=== PATIENT | female | born 1970 | race Caucasian/White ===

== ENCOUNTER → 2022-12-04 | Outpatient (REF) | payer OTHER ==
[2022-12-04 17:46] LABS: BASO # 0.1 10^3/uL (0.0-0.2); EOS # 1.2 10^3/uL (0.0-0.5); HEMOGLOBIN 15.3 g/dl (12.0-15.5); LYMPH # 2.8 10^3/uL (1.5-5.0); LYMPH % 31.4 % (24.0-44.0); MEAN CORPUSCULAR HEMOGLOBIN 30.6 pg (27.0-33.0); MEAN CORPUSCULAR HGB CONC 32.6 g/dl (32.0-36.5); MONO # 0.5 10^3/uL (0.0-0.8); MONO % 5.8 % (2.0-8.0); NEUTROPHILS # 4.3 10^3/uL (1.5-8.5); NEUTROPHILS % 48.6 % (36.0-66.0); PLATELET COUNT, AUTOMATED 206 10^3/uL (150-450); WHITE BLOOD COUNT 8.8 10^3/uL (4.0-10.0)
[2022-12-04 18:12] LABS: HEMOGLOBIN A1c 9.2 % (4.0-6.0)
[2022-12-04 18:15] LABS: ALBUMIN 3.6 G/DL (3.2-5.2); BILIRUBIN,TOTAL 0.3 MG/DL (0.3-1.2); CALCIUM LEVEL 9.2 MG/DL (8.5-10.1); CHOLESTEROL RISK RATIO 3.35 (<5); CREATININE FOR GFR 1.04 MG/DL (0.55-1.30); GLOMERULAR FILTRATION RATE 59.2 (>51); LDL CHOLESTEROL 41.2 MG/DL (<100); POTASSIUM SERUM 4.9 MMOL/L (3.5-5.1); TOTAL PROTEIN 7.1 G/DL (5.7-8.2)
[2022-12-04 18:17] LABS: THYROID STIMULATING HORMONE 5.342 uIU/ML (0.55-4.78)
== END ==
LOC: M LAB REF 16:58
PROVIDERS: ATTEND Nurse Practitioner Family
DX: E55.9 Vitamin D deficiency, unspecified (principal); R53.83 Other fatigue; Z68.26 Body mass index [BMI] 26.0-26.9, adult

== ENCOUNTER → 2023-01-06 | Outpatient (REF) | payer OTHER ==
[2023-01-06 10:59] LABS: ALBUMIN 3.6 G/DL (3.2-5.2); BILIRUBIN,DIRECT 0.1 MG/DL (<0.4); BILIRUBIN,TOTAL 0.3 MG/DL (0.3-1.2); TOTAL PROTEIN 6.3 G/DL (5.7-8.2)
[2023-01-06 11:02] LABS: TOTAL 25(OH) VITAMIN D 40.2 NG/ML (20.0-100.0)
== END ==
LOC: M LAB REF 09:51
PROVIDERS: ATTEND Nurse Practitioner Family
DX: E55.9 Vitamin D deficiency, unspecified (principal); R74.8 Abnormal levels of other serum enzymes

== ENCOUNTER → 2023-08-13 | Outpatient (REF) | payer OTHER, MEDICAID ==
[~2023-08-13] MED LIST: AMIT100TA PO; AMOX875T2 PO; ASPI-161 PO; ATOR80TA59 PO; BASA100I SC; CLON0.5T2 PO; D200CAP PO; HUMA100I5 SC; LATU80TA2 PO; LOSA100T46 PO; LYRI300C PO; SYNT112T2 PO
[2023-08-13 13:30] LABS: BASO % 0.6 % (0.0-1.0); EOS # 0.2 10^3/uL (0.0-0.5); EOS % 2.8 % (0.0-3.0); HEMATOCRIT 40.3 % (36.0-47.0); HEMOGLOBIN 13.4 g/dl (12.0-15.5); LYMPH # 3.4 10^3/uL (1.5-5.0); LYMPH % 50.7 % (24.0-44.0); MEAN CORPUSCULAR HEMOGLOBIN 31.2 pg (27.0-33.0); MEAN CORPUSCULAR HGB CONC 33.3 g/dl (32.0-36.5); MEAN CORPUSCULAR VOLUME 93.9 fl (80.0-96.0); MONO # 0.4 10^3/uL (0.0-0.8); MONO % 5.8 % (2.0-8.0); NEUTROPHILS # 2.7 10^3/uL (1.5-8.5); PLATELET COUNT, AUTOMATED 182 10^3/uL (150-450); RED BLOOD COUNT 4.29 10^6/uL (4.00-5.40); WHITE BLOOD COUNT 6.8 10^3/uL (4.0-10.0)
== END ==
LOC: M LAB REF 12:11
PROVIDERS: ATTEND Nurse Practitioner Family
DX: E03.9 Hypothyroidism, unspecified (principal); D72.829 Elevated white blood cell count, unspecified

== ENCOUNTER → 2024-03-07 | Outpatient (REF) | payer OTHER ==
[~2024-03-07] MED LIST changes: -ASPI-161 PO; +ASPI-615 PO
[2024-03-07 18:22] LABS: HEMOGLOBIN A1c 8.5 % (4.0-6.0)
[2024-03-07 18:44] LABS: ALBUMIN 4.3 G/DL (3.2-5.2); BILIRUBIN,TOTAL 0.6 MG/DL (0.3-1.2); CALCIUM LEVEL 9.7 MG/DL (8.5-10.1); CREATININE FOR GFR 1.42 MG/DL (0.55-1.30); POTASSIUM SERUM 5.7 MMOL/L (3.5-5.1); THYROID STIMULATING HORMONE 3.527 uIU/ML (0.55-4.78); TOTAL PROTEIN 7.7 G/DL (5.7-8.2)
== END ==
LOC: M LAB REF 16:30
PROVIDERS: ATTEND Nurse Practitioner Family
DX: E10.9 Type 1 diabetes mellitus without complications (principal); E78.00 Pure hypercholesterolemia, unspecified; E03.9 Hypothyroidism, unspecified

== ENCOUNTER → 2024-07-11 | Outpatient (REF) | payer OTHER ==
[2024-07-11 12:59] LABS: BLOOD UREA NITROGEN 9 MG/DL (9-23); CALCIUM LEVEL 9.9 MG/DL (8.5-10.1); CARBON DIOXIDE LEVEL 30 MMOL/L (20-31); CHLORIDE LEVEL 100 MMOL/L (98-107); CHOLESTEROL LEVEL 241 MG/DL (<200); CHOLESTEROL RISK RATIO 4.36 (<5); CREATININE FOR GFR 1.02 MG/DL (0.55-1.30); GLOMERULAR FILTRATION RATE > 60.0 (>51); GLUCOSE, FASTING 61 MG/DL (60-100); HDL CHOLESTEROL 55.2 MG/DL (>40); LDL CHOLESTEROL 135.4 MG/DL (<100); NON-HDL-C 185.8 MG/DL; POTASSIUM SERUM 3.5 MMOL/L (3.5-5.1); SODIUM LEVEL 141 MMOL/L (136-145); TRIGLYCERIDES LEVEL 252 MG/DL (<150)
[2024-07-11 13:01] LABS: THYROID STIMULATING HORMONE 57.541 uIU/ML (0.55-4.78)
[2024-07-11 14:03] LABS: CREATININE, URINE 100.3 MG/DL
[2024-07-11 14:05] LABS: MAU/CREAT RATIO 4.9 MCG/MG (0.0-30.0)
== END ==
LOC: M LAB REF 12:26
PROVIDERS: ATTEND Nurse Practitioner Family
DX: R94.4 Abnormal results of kidney function studies (principal); E10.9 Type 1 diabetes mellitus without complications; E03.9 Hypothyroidism, unspecified; Z11.9 Encounter for screening for infectious and parasitic diseases, unspecified

== ENCOUNTER 2025-04-24 17:21 | Inpatient (IN) | payer OTHER ==
[~2025-04-24] VITALS: Ht 167.6 cm; Wt 51.0 kg
[2025-04-24 17:53] LABS: VENOUS BASE EXCESS -18.5 (-2.0-2.0); VENOUS HCO3 10.0 MMOL/L (23.0-27.0); VENOUS O2 SATURATION 62.7 % (60.0-80.0); VENOUS PARTIAL PRESSURE CO2 32.8 mmHg (38.0-50.0); VENOUS PARTIAL PRESSURE O2 46.4 mmHg (30.0-50.0); VENOUS PH 7.100 UNITS (7.330-7.430); VENOUS STANDARD HCO3 10.1 MMOL/L; VENOUS TOTAL CO2 11.0 MMOL/L (24.0-28.0)
[2025-04-24] MEDS: NS (Normal Saline) 0.9% 1,000 ML IV ONE ×2 (17:59→19:07)
[2025-04-24 18:04] LABS: BASO # 0.1 10^3/uL (0.0-0.2); BASO % 0.2 % (0.0-1.0); EOS # 0.0 10^3/uL (0.0-0.5); EOS % 0.0 % (0.0-3.0); LYMPH # 2.4 10^3/uL (1.5-5.0); LYMPH % 8.1 % (24.0-44.0); MONO # 1.3 10^3/uL (0.0-0.8); MONO % 4.4 % (2.0-8.0); NEUTROPHILS # 25.9 10^3/uL (1.5-8.5); NEUTROPHILS % 86.4 % (36.0-66.0); PLATELET COUNT, AUTOMATED 213 10^3/uL (150-450)
[2025-04-24 18:10] LABS: ABG BASE EXCESS -16.6 (-2.0-2.0); ABG HCO3 8.6 MMOL/L (22.0-26.0); ABG O2 SATURATION 99.3 % (95.0-99.0); ABG PARTIAL PRESSURE CO2 20.1 mmHg (35.0-45.0); ABG PARTIAL PRESSURE O2 218.9 mmHg (75.0-100.0); ABG STANDARD HCO3 11.9 MMOL/L. (22.0-26.0); ABG TOTAL CO2 9.3 MMOL/L (22.0-29.0); ABG pH (ARTERIAL) 7.251 UNITS (7.350-7.450)
[2025-04-24 18:26] LABS: ETHYL ALCOHOL (ETHANOL) 0.005 % (0.000-0.010)
[2025-04-24 18:28] LABS: OSMOLALITY SERUM 356 MOSM/KG (275-295)
[2025-04-24] MEDS: HumuLIN R (REGULAR) INSULIN (NovoLIN R) **100 U/ML** PER UNIT IV ONE (18:28)
[2025-04-24 18:29] LABS: FREE T4 1.30 NG/DL (0.89-1.76)
[2025-04-24] MEDS: CEFEPIME HCL 2 GM in DEXTROSE 5% (D5W) ADV/MINI-BAG 50 ML IV ONE (18:29)
[2025-04-24 18:31] LABS: SP GRAVITY,URINE MANUAL REFLEX 1.020 (1.002-1.035)
[2025-04-24 18:32] LABS: KETONE, URINE MANUAL REFLEX 3+ mg/dL (NEGATIVE); NITRITE, URINE MANUAL RFX NEGATIVE (NEGATIVE); PROTEIN, URINE MANUAL REFLEX TRACE mg/dL (NEGATIVE); UROBILINOGEN, UA MANUAL REFLEX NORMAL (NORMAL)
[2025-04-24] MEDS: ONDANSETRON 4MG 2ML VIAL IV ONE (18:32)
[2025-04-24 18:34] LABS: ACETONE/KETONE > 4.50 MMOL/L (0.02-0.27); ALT/SGPT 15 U/L (7.0-40); AST/SGOT 23 U/L (<34); CALCIUM LEVEL 8.0 MG/DL (8.5-10.1); CARBON DIOXIDE LEVEL < 10.0 MMOL/L (20-31); CHLORIDE LEVEL 101 MMOL/L (98-107); CREATININE FOR GFR 1.84 MG/DL (0.55-1.30); GLOMERULAR FILTRATION RATE 32.0 (>51); POTASSIUM SERUM 5.1 MMOL/L (3.5-5.1); SODIUM LEVEL 144 MMOL/L (136-145)
[2025-04-24 18:35] LABS: HYALINE CAST, URINE RFX NONE SEEN /lpf (0-1); MICROSCOPIC EXAM RFX PERFORMED; SQUAMOUS EPITHELIAL URINE RFX SMALL AMOUNT /hpf (SMALL AMT)
[2025-04-24 18:45] LABS: ESTIMATED AVERAGE GLUCOSE 217.0 MG/DL (60-110)
[2025-04-24 19:13] LABS: AMPHETAMINES LEVEL URINE NEGATIVE (NEGATIVE); BARBITURATES URINE NEGATIVE (NEGATIVE); BENZODIAZEPINES URINE NEGATIVE (NEGATIVE); COCAINE METABOLITE URINE NEGATIVE (NEGATIVE); METHADONE URINE NEGATIVE (NEGATIVE); OPIATES URINE NEGATIVE (NEGATIVE)
[2025-04-24 19:14] LABS: PHENCYCLIDINE URINE NEGATIVE (NEGATIVE)
[2025-04-24] MEDS ORDERED: INSULIN IV RATE CHANGE DOCUMENTATION ML/HR XX SCH (19:15)
[2025-04-24 19:16] LABS: CANNABINOIDS URINE POSITIVE (NEGATIVE)
[2025-04-24] MEDS: INSULIN REGULAR IN 0.9 % NACL 100 UNIT in IV 1 EA IV SCH ×2 (19:20→21:49)
[2025-04-24] MEDS ORDERED: VENTAER INH (20:13)
[2025-04-24] MEDS ORDERED: PREG75CA3 PO (20:13)
[2025-04-24] MEDS ORDERED: MIRT1TAB PO (20:17)
[2025-04-24] MEDS ORDERED: METH20TA29 PO (20:17)
[2025-04-24] MEDS ORDERED: CYPR4TAB36 PO (20:17)
[2025-04-24] MEDS ORDERED: LEVO100T5 PO (20:17)
[2025-04-24] MEDS ORDERED: XALA0.007 OU (20:17)
[2025-04-24] MEDS ORDERED: OLOP2.5D7 OU (20:17)
[2025-04-24] MEDS ORDERED: LANTINJ4 SQ (20:17)
[2025-04-24] MEDS ORDERED: LOSA100T46 PO (20:17)
[2025-04-24] MEDS ORDERED: HOME MED LIST COMPLETE! XX SCH (20:20)
[2025-04-24] MEDS ORDERED: ISOVUE-370 76% 100 ML VIAL As Ordered ONE (20:53)
[2025-04-24] MEDS: SODIUM BICARBONATE 8.4% INJ 50ML SYRINGE IV STA (21:27)
[2025-04-24] MEDS: NS (Normal Saline) 0.9% 1,000 ML IV SCH ×2 (21:27→22:34)
[2025-04-24] MEDS: VANCOMYCIN HCL 1,000 MG, VIAL MATE ADAPTER 1 EACH in NS 250 ML IV ONE (21:39)
[2025-04-24] MEDS ORDERED: IPRATROPIUM 0.5 MG/ALBUTEROL 2.5 MG INH SOL UD 3 ML NEB PRN (22:00)
[2025-04-24] MEDS: SODIUM BICARBONATE 8.4% INJ 50ML SYRINGE IV SCH (22:34)
[2025-04-24] MEDS: LanTUS (INSULIN GLARGINE INJ) 1 UNITS/0.01 ML SC SCH (22:34)
[2025-04-24] MEDS: HEPARIN SOD 5000 UNITS/ML 1 ML VIAL/SYRINGE SC SCH (22:35)
[2025-04-24] MEDS: ASPIRIN 81 MG ENTERIC TABLET PO SCH (23:00)
[2025-04-24] MEDS: LURASIDONE HCL 40 MG TAB PO SCH (23:00)
[2025-04-24] MEDS: ATORVASTATIN 20 MG TAB PO SCH (23:00)
[2025-04-24 23:11] VITALS: BP 140/95; TEMP 99.7; O2SAT 94
[2025-04-24] MEDS: ONDANSETRON 4MG 2ML VIAL IV PRN (23:30)
[2025-04-24 23:39] VITALS: TEMP 99.2
[2025-04-24] MEDS: INSULIN IV RATE CHANGE DOCUMENTATION ML/HR XX SCH (23:57)
[2025-04-25] VITALS (17 sets, daily range): BP systolic 104–132; BP diastolic 56–80; TEMP 98.6–99.7; O2SAT 93–100
[2025-04-25] MEDS: D5W/LR 1,000 ML IV SCH (00:24)
[2025-04-25 00:33] LABS: BASO # 0.1 10^3/uL (0.0-0.2); BASO % 0.2 % (0.0-1.0); EOS # 0.3 10^3/uL (0.0-0.5); EOS % 0.9 % (0.0-3.0); LYMPH # 3.1 10^3/uL (1.5-5.0); LYMPH % 10.3 % (24.0-44.0); MONO # 1.4 10^3/uL (0.0-0.8); MONO % 4.6 % (2.0-8.0); NEUTROPHILS # 24.9 10^3/uL (1.5-8.5); NEUTROPHILS % 83.0 % (36.0-66.0); PLATELET COUNT, AUTOMATED 176 10^3/uL (150-450)
[2025-04-25 00:34] LABS: ALT/SGPT 28.0 U/L (7.0-40); AST/SGOT 58.0 U/L (<34); CALCIUM LEVEL 7.4 MG/DL (8.5-10.1); CARBON DIOXIDE LEVEL 24.0 MMOL/L (20-31); CHLORIDE LEVEL 110.0 MMOL/L (98-107); CREATININE FOR GFR 1.86 MG/DL (0.55-1.30); GLOMERULAR FILTRATION RATE 31.6 (>51); POTASSIUM SERUM 3.5 MMOL/L (3.5-5.1); SODIUM LEVEL 151.0 MMOL/L (136-145)
[2025-04-25] MEDS: PIPERACILLIN/TAZOBACTAM SOD 4.5 GM in DEXTROSE 5% (D5W) ADV/MINI-BAG 50 ML IV SCH (04:44)
[2025-04-25 05:19] LABS: VENOUS BASE EXCESS -0.8 (-2.0-2.0); VENOUS HCO3 24.2 MMOL/L (23.0-27.0); VENOUS O2 SATURATION 96.0 % (60.0-80.0); VENOUS PARTIAL PRESSURE CO2 41.3 mmHg (38.0-50.0); VENOUS PARTIAL PRESSURE O2 95.6 mmHg (30.0-50.0); VENOUS PH 7.385 UNITS (7.330-7.430); VENOUS STANDARD HCO3 23.8 MMOL/L; VENOUS TOTAL CO2 25.4 MMOL/L (24.0-28.0)
[2025-04-25 05:29] LABS: BASO # 0.1 10^3/uL (0.0-0.2); BASO % 0.2 % (0.0-1.0); EOS # 0.0 10^3/uL (0.0-0.5); EOS % 0.0 % (0.0-3.0); LYMPH # 2.7 10^3/uL (1.5-5.0); LYMPH % 8.9 % (24.0-44.0); MONO # 1.7 10^3/uL (0.0-0.8); MONO % 5.6 % (2.0-8.0); NEUTROPHILS # 25.3 10^3/uL (1.5-8.5); NEUTROPHILS % 84.3 % (36.0-66.0); PLATELET COUNT, AUTOMATED 139 10^3/uL (150-450)
[2025-04-25 05:38] LABS: INR 1.16
[2025-04-25 05:52] LABS: ABG BASE EXCESS 3.3 (-2.0-2.0); ABG HCO3 26.9 MMOL/L (22.0-26.0); ABG O2 SATURATION 97.8 % (95.0-99.0); ABG PARTIAL PRESSURE CO2 37.2 mmHg (35.0-45.0); ABG PARTIAL PRESSURE O2 122.1 mmHg (75.0-100.0); ABG STANDARD HCO3 27.4 MMOL/L. (22.0-26.0); ABG TOTAL CO2 28.0 MMOL/L (22.0-29.0); ABG pH (ARTERIAL) 7.477 UNITS (7.350-7.450)
[2025-04-25 05:57] LABS: CALCIUM LEVEL 6.7 MG/DL (8.5-10.1); CARBON DIOXIDE LEVEL 24.0 MMOL/L (20-31); CHLORIDE LEVEL 112.0 MMOL/L (98-107); CREATININE FOR GFR 1.42 MG/DL (0.55-1.30); GLOMERULAR FILTRATION RATE 43.7 (>51); POTASSIUM SERUM 3.3 MMOL/L (3.5-5.1); SODIUM LEVEL 149.0 MMOL/L (136-145)
[2025-04-25] MEDS: LEVOTHYROXINE 100 MCG TABLET (0.1 MG) PO SCH (06:34)
[2025-04-25] MEDS: INSULIN LISPRO (NovoLOG) PER UNIT SC SCH ×3 (06:34→21:54)
[2025-04-25 07:57] LABS: VANCOMYCIN RANDOM 13.4 UG/ML
[2025-04-25 08:05] LABS: ALT/SGPT 22.0 U/L (7.0-40); AST/SGOT 56.0 U/L (<34); MAGNESIUM LEVEL 1.5 MG/DL (1.8-2.4); PHOSPHORUS LEVEL 1.5 MG/DL (2.5-4.9)
[2025-04-25] MEDS: VANCOMYCIN HCL 750 MG, VIAL MATE ADAPTER 1 EACH in NS 250 ML IV SCH (08:13)
[2025-04-25] MEDS: PANTOPRAZOLE 40MG VIAL IV SCH (08:13)
[2025-04-25] MEDS: ASPIRIN 81 MG ENTERIC TABLET PO SCH (08:14)
[2025-04-25] MEDS: POTASSIUM CHLORIDE 10MEQ SR TABLET PO ONE (08:14)
[2025-04-25] MEDS ORDERED: DEXTROSE 50% 50 ML SYRINGE As Ordered ONE (08:22)
[2025-04-25] MEDS: DEXTROSE 50% 50 ML SYRINGE IV STA (08:23)
[2025-04-25] MEDS ORDERED: GLUCAGON INJ 1 MG VIAL SC PRN (08:25)
[2025-04-25] MEDS ORDERED: GLUCOSE 4 GM CHEW PO PRN (08:25)
[2025-04-25] MEDS: KCL 10MEQ/100ML SWI (KRUN) 10 MEQ in IV 1 EA IV SCH (08:29)
[2025-04-25] MEDS: SYMBICORT 160/4.5MCG INHALER 6GM INH SCH (10:27)
[2025-04-25] MEDS: PREGABALIN 75 MG CAP PO SCH (10:58)
[2025-04-25 11:37] LABS: CALCIUM LEVEL 7.8 MG/DL (8.5-10.1); CARBON DIOXIDE LEVEL 26.5 MMOL/L (20-31); CHLORIDE LEVEL 109.0 MMOL/L (98-107); CREATININE FOR GFR 1.69 MG/DL (0.55-1.30); GLOMERULAR FILTRATION RATE 35.5 (>51); POTASSIUM SERUM 4.0 MMOL/L (3.5-5.1); SODIUM LEVEL 148.0 MMOL/L (136-145)
[2025-04-25] MEDS: METHYLPHENIDATE 5 MG TAB PO ONE (12:27)
[2025-04-25] MEDS: CALCIUM GLUCONATE 1,000 MG in DEXTROSE 5% (D5W) MINI-BAG PLU 100 ML IV ONE (13:29)
[2025-04-25] MEDS: LR 1,000 ML IV SCH (18:11)
[2025-04-25] MEDS: NS 0.45% 1,000 ML IV SCH (18:50)
[2025-04-25] MEDS: MAG SULF 1GM/100ML (MAG RUN) 1 GM in IV 1 EA IV ONE (20:16)
[2025-04-25] MEDS: clonazePAM 0.5 MG TAB PO PRN (20:18)
[2025-04-25] MEDS: DOXYCYCLINE HYCLATE 100 MG TABLET PO SCH (20:18)
[2025-04-25] MEDS: MIRTAZAPINE 7.5 MG PER 1/2 TABLET PO SCH (21:00)
[2025-04-26] VITALS (8 sets, daily range): BP systolic 98–148; BP diastolic 63–90; TEMP 97.2–99.1; O2SAT 93–99
[2025-04-26 05:46] LABS: BASO # 0.0 10^3/uL (0.0-0.2); BASO % 0.1 % (0.0-1.0); EOS # 0.0 10^3/uL (0.0-0.5); EOS % 0.1 % (0.0-3.0); LYMPH # 2.4 10^3/uL (1.5-5.0); LYMPH % 8.7 % (24.0-44.0); MONO # 1.2 10^3/uL (0.0-0.8); MONO % 4.2 % (2.0-8.0); NEUTROPHILS # 23.9 10^3/uL (1.5-8.5); NEUTROPHILS % 85.7 % (36.0-66.0); PLATELET COUNT, AUTOMATED 105 10^3/uL (150-450)
[2025-04-26 06:28] LABS: CALCIUM LEVEL 7.0 MG/DL (8.5-10.1); CARBON DIOXIDE LEVEL 27.0 MMOL/L (20-31); CHLORIDE LEVEL 106.0 MMOL/L (98-107); CREATININE FOR GFR 1.31 MG/DL (0.55-1.30); GLOMERULAR FILTRATION RATE 48.1 (>51); MAGNESIUM LEVEL 1.9 MG/DL (1.8-2.4); PHOSPHORUS LEVEL 2.3 MG/DL (2.5-4.9); POTASSIUM SERUM 3.6 MMOL/L (3.5-5.1); SODIUM LEVEL 142.0 MMOL/L (136-145)
[2025-04-26] MEDS: METHYLPHENIDATE 5 MG TAB PO SCH (08:10)
[2025-04-26] MEDS: INSULIN LISPRO (NovoLOG) PER UNIT SC SCH (08:11)
[2025-04-26] MEDS: PIPERACILLIN/TAZOBACTAM SOD 4.5 GM in DEXTROSE 5% (D5W) ADV/MINI-BAG 50 ML IV SCH (11:14)
[2025-04-26] MEDS: predniSONE 20 MG TAB PO SCH (11:14)
[2025-04-26] MEDS: NICOTINE 14 MG/24 HR TRANSDERMAL TD SCH (11:54)
[2025-04-26] MEDS: IPRATROPIUM 0.5 MG/ALBUTEROL 2.5 MG INH SOL UD 3 ML NEB SCH (15:17)
[2025-04-26] MEDS: K-PHOS NEUTRAL 250 MG TABLET (SOD.PHOSPHATE/POT.PHOSPHATE) PO SCH (16:12)
[2025-04-26] MEDS: LanTUS (INSULIN GLARGINE INJ) 1 UNITS/0.01 ML SC SCH (21:21)
[2025-04-27] VITALS (7 sets, daily range): BP systolic 115–156; BP diastolic 67–81; TEMP 97–98.2; O2SAT 96–100
[2025-04-27 06:49] LABS: BASO # 0.0 10^3/uL (0.0-0.2); BASO % 0.1 % (0.0-1.0); EOS # 0.0 10^3/uL (0.0-0.5); EOS % 0.0 % (0.0-3.0); LYMPH # 1.3 10^3/uL (1.5-5.0); LYMPH % 7.8 % (24.0-44.0); MONO # 0.6 10^3/uL (0.0-0.8); MONO % 3.6 % (2.0-8.0); NEUTROPHILS # 14.6 10^3/uL (1.5-8.5); NEUTROPHILS % 87.8 % (36.0-66.0)
[2025-04-27 06:55] LABS: PLATELET COUNT, AUTOMATED 90 10^3/uL (150-450)
[2025-04-27 07:13] LABS: CALCIUM LEVEL 7.5 MG/DL (8.5-10.1); CARBON DIOXIDE LEVEL 27.0 MMOL/L (20-31); CHLORIDE LEVEL 103.0 MMOL/L (98-107); CREATININE FOR GFR 1.07 MG/DL (0.55-1.30); GLOMERULAR FILTRATION RATE 61.3 (>51); MAGNESIUM LEVEL 1.6 MG/DL (1.8-2.4); PHOSPHORUS LEVEL 2.7 MG/DL (2.5-4.9); POTASSIUM SERUM 3.6 MMOL/L (3.5-5.1); SODIUM LEVEL 140.0 MMOL/L (136-145)
[2025-04-27] MEDS: LanTUS (INSULIN GLARGINE INJ) 1 UNITS/0.01 ML SC SCH (08:43)
[2025-04-27] MEDS: LOSARTAN 50 MG TABLET PO SCH (10:04)
[2025-04-27] MEDS: INSULIN LISPRO (NovoLOG) PER UNIT SC SCH (11:36)
[2025-04-27] MEDS: MAG SULF 1GM/100ML (MAG RUN) 1 GM in IV 1 EA IV SCH (16:34)
[2025-04-28] VITALS (7 sets, daily range): BP systolic 133–181; BP diastolic 73–95; TEMP 96.9–98; O2SAT 95–100
[2025-04-28 06:02] LABS: BASO # 0.0 10^3/uL (0.0-0.2); BASO % 0.1 % (0.0-1.0); EOS # 0.0 10^3/uL (0.0-0.5); EOS % 0.0 % (0.0-3.0); LYMPH # 1.8 10^3/uL (1.5-5.0); LYMPH % 13.9 % (24.0-44.0); MONO # 0.6 10^3/uL (0.0-0.8); MONO % 4.6 % (2.0-8.0); NEUTROPHILS # 10.5 10^3/uL (1.5-8.5); NEUTROPHILS % 80.6 % (36.0-66.0)
[2025-04-28 06:06] LABS: PLATELET COUNT, AUTOMATED 90 10^3/uL (150-450)
[2025-04-28 06:31] LABS: CALCIUM LEVEL 7.9 MG/DL (8.5-10.1); CARBON DIOXIDE LEVEL 28.0 MMOL/L (20-31); CHLORIDE LEVEL 105.0 MMOL/L (98-107); CREATININE FOR GFR 0.89 MG/DL (0.55-1.30); GLOMERULAR FILTRATION RATE 76.5 (>51); MAGNESIUM LEVEL 1.9 MG/DL (1.8-2.4); PHOSPHORUS LEVEL 3.3 MG/DL (2.5-4.9); POTASSIUM SERUM 3.4 MMOL/L (3.5-5.1); SODIUM LEVEL 144.0 MMOL/L (136-145)
[2025-04-28] MEDS: POTASSIUM CHLORIDE 10MEQ SR TABLET PO ONE (08:22)
[2025-04-28] MEDS: LanTUS (INSULIN GLARGINE INJ) 1 UNITS/0.01 ML SC SCH (08:25)
[2025-04-28] MEDS ORDERED: PEN-308 SC (10:02)
[2025-04-28] MEDS ORDERED: LEVO1TAB40 PO (10:02)
[2025-04-28] MEDS ORDERED: ANOR1AER PO (10:02)
[2025-04-28] MEDS ORDERED: LANTINJ4 SQ (10:02)
[2025-04-28] MEDS ORDERED: LANTINJ4 SC (10:02)
[2025-04-28] MEDS ORDERED: PRED10TA2 PO (10:02)
[2025-04-28] MEDS: DEXTROSE 50% 50 ML SYRINGE IV PRN (11:55)
[2025-04-28] MEDS: LOSARTAN 50 MG TABLET PO ONE (12:44)
[2025-04-28] MEDS: INSULIN LISPRO (NovoLOG) PER UNIT SC SCH (18:00)
[2025-04-29] VITALS (7 sets, daily range): BP systolic 105–150; BP diastolic 59–78; TEMP 97–98.7; O2SAT 92–100
[2025-04-29] MEDS: INSULIN LISPRO (NovoLOG) PER UNIT SC ONE (02:40)
[2025-04-29 06:10] LABS: BASO # 0.0 10^3/uL (0.0-0.2); BASO % 0.1 % (0.0-1.0); EOS # 0.0 10^3/uL (0.0-0.5); EOS % 0.0 % (0.0-3.0); LYMPH # 2.0 10^3/uL (1.5-5.0); LYMPH % 18.2 % (24.0-44.0); MONO # 0.9 10^3/uL (0.0-0.8); MONO % 7.8 % (2.0-8.0); NEUTROPHILS # 8.2 10^3/uL (1.5-8.5); NEUTROPHILS % 73.4 % (36.0-66.0); PLATELET COUNT, AUTOMATED 102 10^3/uL (150-450)
[2025-04-29 06:33] LABS: CALCIUM LEVEL 8.4 MG/DL (8.5-10.1); CARBON DIOXIDE LEVEL 30.0 MMOL/L (20-31); CHLORIDE LEVEL 104.0 MMOL/L (98-107); CREATININE FOR GFR 0.92 MG/DL (0.55-1.30); GLOMERULAR FILTRATION RATE 73.5 (>51); POTASSIUM SERUM 3.9 MMOL/L (3.5-5.1); SODIUM LEVEL 142.0 MMOL/L (136-145)
[2025-04-29] MEDS ORDERED: INSULIN LISPRO (NovoLOG) PER UNIT SC SCH (07:30)
[2025-04-29] MEDS: INSULIN LISPRO (NovoLOG) PER UNIT SC SCH ×3 (10:07→20:39)
[2025-04-29] MEDS: LanTUS (INSULIN GLARGINE INJ) 1 UNITS/0.01 ML SC SCH (10:08)
[2025-04-29] MEDS: LOSARTAN 50 MG TABLET PO SCH (10:11)
[2025-04-30 03:14] VITALS: BP 140/64; TEMP 97.9; O2SAT 90
[2025-04-30 07:40] VITALS: BP 147/76; TEMP 97.1; O2SAT 97
[2025-04-30] MEDS: INSULIN LISPRO (NovoLOG) PER UNIT SC SCH (08:19)
[2025-04-30] MEDS: LanTUS (INSULIN GLARGINE INJ) 1 UNITS/0.01 ML SC SCH (08:41)
[2025-04-30 09:20] LABS: CALCIUM LEVEL 8.7 MG/DL (8.5-10.1); CARBON DIOXIDE LEVEL 31.0 MMOL/L (20-31); CHLORIDE LEVEL 94.0 MMOL/L (98-107); CREATININE FOR GFR 1.03 MG/DL (0.55-1.30); GLOMERULAR FILTRATION RATE 64.2 (>51); POTASSIUM SERUM 4.5 MMOL/L (3.5-5.1); SODIUM LEVEL 133.0 MMOL/L (136-145)
[2025-04-30] MEDS: LanTUS (INSULIN GLARGINE INJ) 1 UNITS/0.01 ML SC ONE (09:54)
[2025-04-30 11:53] VITALS: BP 133/74; TEMP 98.3; O2SAT 96
[2025-04-30 19:54] VITALS: BP 130/72; TEMP 97.5; O2SAT 98
[2025-04-30 23:38] VITALS: BP 118/63; TEMP 98.9; O2SAT 93
[2025-05-01 03:47] VITALS: BP 112/65; TEMP 98.8; O2SAT 95
[2025-05-01 07:45] VITALS: BP 142/73; TEMP 97.5; O2SAT 96
[2025-05-01] MEDS: LanTUS (INSULIN GLARGINE INJ) 1 UNITS/0.01 ML SC SCH (08:09)
[2025-05-01 11:53] LABS: ACETONE/KETONE 0.08 MMOL/L (0.02-0.27)
[2025-05-01 11:54] LABS: CALCIUM LEVEL 8.8 MG/DL (8.5-10.1); CARBON DIOXIDE LEVEL 30.0 MMOL/L (20-31); CHLORIDE LEVEL 99.0 MMOL/L (98-107); CREATININE FOR GFR 1.03 MG/DL (0.55-1.30); GLOMERULAR FILTRATION RATE 64.2 (>51); POTASSIUM SERUM 3.5 MMOL/L (3.5-5.1); SODIUM LEVEL 140.0 MMOL/L (136-145)
[2025-05-01 16:12] VITALS: BP 121/58; TEMP 97.4; O2SAT 97
[2025-05-01] MEDS: INSULIN LISPRO (NovoLOG) PER UNIT SC SCH (17:37)
[2025-05-01 19:28] VITALS: BP 114/66; TEMP 97.1; O2SAT 99
[2025-05-02 03:37] VITALS: BP 108/59; TEMP 96.9; O2SAT 96
[2025-05-02 07:24] VITALS: BP 124/70; TEMP 97; O2SAT 100
[2025-05-02 08:05] VITALS: BP 124/70
[2025-05-02] MEDS ORDERED: LANTINJ4 SC (12:43)
[2025-05-02] MEDS: IPRATROPIUM 0.5 MG/ALBUTEROL 2.5 MG INH SOL UD 3 ML NEB SCH (15:00)
[2025-05-02 16:25] VITALS: BP 125/59; TEMP 97; O2SAT 100
[2025-05-02] MEDS: INSULIN LISPRO (NovoLOG) PER UNIT SC SCH (17:30)
[2025-05-02 19:30] VITALS: BP 111/69; TEMP 97.6; O2SAT 100
[2025-05-02] MEDS ORDERED: INSU100I24 SQ (19:41)
[2025-05-03 04:03] VITALS: BP 100/57; TEMP 97.8; O2SAT 100
[2025-05-03 07:16] VITALS: BP 116/69; TEMP 97.1; O2SAT 95
[2025-05-03] MEDS: LanTUS (INSULIN GLARGINE INJ) 1 UNITS/0.01 ML SC SCH (08:02)
[2025-05-03] MEDS ORDERED: LanTUS (INSULIN GLARGINE INJ) 1 UNITS/0.01 ML SC SCH (21:00)
[2025-05-04] MEDS ORDERED: LanTUS (INSULIN GLARGINE INJ) 1 UNITS/0.01 ML SC SCH (21:00)
== END 2025-05-03 10:18 | disposition home or self-care (01) | DRG 420 ==
LOC: EDBD 17:21 → M ED 17:21 → M ED INP 21:58 → M ICU 23:08 → M PCU 04-26 05:56
PROVIDERS: ADMIT Internal Medicine; ATTEND Internal Medicine
PROC: B246ZZZ Ultrasonography of Right and Left Heart (ICD-10-PCS; principal; 2025-04-25)
DX: E10.10 Type 1 diabetes mellitus with ketoacidosis without coma (principal); J15.69 Pneumonia due to other Gram-negative bacteria; N17.9 Acute kidney failure, unspecified; I24.89 Other forms of acute ischemic heart disease; K56.7 Ileus, unspecified; J44.0 Chronic obstructive pulmonary disease with (acute) lower respiratory infection; J44.1 Chronic obstructive pulmonary disease with (acute) exacerbation; F20.9 Schizophrenia, unspecified; E10.22 Type 1 diabetes mellitus with diabetic chronic kidney disease; E10.42 Type 1 diabetes mellitus with diabetic polyneuropathy; F31.9 Bipolar disorder, unspecified; E78.5 Hyperlipidemia, unspecified; F17.200 Nicotine dependence, unspecified, uncomplicated; I12.9 Hypertensive chronic kidney disease with stage 1 through stage 4 chronic kidney disease, or unspecified chronic kidney disease; N18.9 Chronic kidney disease, unspecified; E03.9 Hypothyroidism, unspecified; F90.9 Attention-deficit hyperactivity disorder, unspecified type; Z79.890 Hormone replacement therapy; Z79.4 Long term (current) use of insulin; Z91.048 Other nonmedicinal substance allergy status; Z79.899 Other long term (current) drug therapy; Z79.82 Long term (current) use of aspirin; E10.65 Type 1 diabetes mellitus with hyperglycemia; T38.0X5A Adverse effect of glucocorticoids and synthetic analogues, initial encounter